=== PATIENT | female | born 1995 | race African-American/Black ===

== ENCOUNTER 2018-02-15 11:33 | Emergency (ER) | payer BC ==
[~2018-02-15] VITALS: Ht 167.6 cm; Wt 56.7 kg
[2018-02-15] MEDS ORDERED: IBUPROFEN 800800 M1 PO (13:04)
[2018-02-15 13:50] VITALS: BP 110/67
== END 2018-02-15 13:51 | disposition home or self-care (01) ==
LOC: ER 11:33
DX: S93.491A Sprain of other ligament of right ankle, initial encounter (principal); W10.8XXA Fall (on) (from) other stairs and steps, initial encounter; Y93.89 Activity, other specified; Y92.89 Other specified places as the place of occurrence of the external cause; Y99.8 Other external cause status

== ENCOUNTER 2020-02-25 12:51 | Emergency (ER) | payer OTHER ==
[~2020-02-25] VITALS: Ht 167.6 cm; Wt 59.0 kg
[~2020-02-25 12:51] MED LIST: IBUPROFEN 800800 M1 PO
[2020-02-25 13:08] LABS: URINE BILIRUBIN NEGATIVE (Negative); URINE BLOOD 3+ (Negative); URINE CLARITY CLOUDY; URINE COLOR RED; URINE GLUCOSE-RANDOM* NEGATIVE (Negative); URINE KETONES NEGATIVE (Negative); URINE LEUKOCYTES-REFLEX NEGATIVE (Negative); URINE NITRITE-REFLEX NEGATIVE (Negative); URINE PROTEIN (DIPSTICK) TRACE (Negative); URINE SPECIFIC GRAVITY 1.025 (1.005-1.035); URINE UROBILINOGEN 0.2 E.U./dl (0.2-1.0)
[2020-02-25 13:30] LABS: BACTERIA-REFLEX 1-9 Few /HPF (None Seen); CASTS None Seen /LPF (None Seen); SQUAMOUS 0-3 Few /LPF (0-3); URINE RBC >20 Many /HPF (0-2); URINE WBC-REFLEX None Seen /HPF (0-5)
[2020-02-25 13:31] LABS: CRYSTALS None Seen /LPF (None Seen)
[2020-02-25 13:50] LABS: ABSOLUTE NEUTROPHILS 11.1 thou/uL (1.4-8.2); BASOPHILS 0.5 % (0.0-2.0); EOSINOPHILS 1.7 % (0.0-3.0); HEMATOCRIT 38.3 % (37.0-47.0); HEMOGLOBIN 13.2 gm/dL (12.0-15.0); LYMPHOCYTES 13.9 % (24.0-44.0); MCH 30.3 pg (26.0-34.0); MCHC 34.3 g/dL (28.0-37.0); MCV 88.3 fL (80.0-100.0); MONOCYTES 5.9 % (1.0-8.0); PLATELET COUNT 221 thou/uL (150-400); RBC 4.34 mil/uL (4.20-5.00); RDW 13.2 % (10.5-14.5); WBC 14.2 thou/uL (4.0-11.0)
[2020-02-25 14:06] LABS: CALCIUM 8.9 mg/dL (8.5-10.1); CREATININE 0.7 mg/dL (0.6-1.0); POTASSIUM 3.8 mmol/L (3.5-5.1)
[2020-02-25 15:16] VITALS: BP 95/71
== END 2020-02-25 15:17 | disposition home or self-care (01) ==
LOC: ER 12:51
PROVIDERS: Physician Assistant
DX: O31.21X1 Continuing pregnancy after intrauterine death of one fetus or more, first trimester, fetus 1 (principal); Z3A.10 10 weeks gestation of pregnancy; Z98.890 Other specified postprocedural states